=== PATIENT | male | born 1980 | race Hispanic/Latino ===

== ENCOUNTER 2019-04-16 18:55 | Emergency (ER) | payer SELFPAY ==
--- NOTE | 2019-04-16 19:16 | Event Note ---
ED Screening Note Date of service: 04/16/19 Time: 19:12 ED Screening Note: This is a 39 y.o. M. that presents to the ER with RLQ pain radiating to right groin and chest pain for 8 hours. PMH of inguinal hernia on right, HTN, tachycardia This initial assessment/diagnostic orders/clinical plan/treatment(s) is/are subject to change based on patients health status, clinical progression and re- assessment by fellow clinical providers in the ED. Further treatment and workup at subsequent clinical providers discretion. Patient/guardian urged not to elope from the ED as their condition may be serious if not clinically assessed and managed. Initial orders include: Labs, EKG, CXR, and CT of abdomen
[2019-04-16 20:28] LABS: Bilirubin,Urine NEG (Negative); Blood,Urine NEG (Negative); Color,Urine Yellow (Yellow); Mucus,Urine FEW /HPF; Urobilinogen,Urine < 2.0 mg/dL (<2.0); WBC,Urine < 1.0 /HPF (0.0-6.0)
[2019-04-16 20:36] LABS: Hematocrit 51.1 % (35.5-45.6); Hemoglobin 17.1 gm/dl (11.8-15.2); Mean Corpuscular HGB Conc 33 % (32-34); Mean Corpuscular Volume 108 fl (84-94); Platelet Count 250 K/mm3 (140-440); Red Blood Count 4.76 M/mm3 (3.65-5.03); Red Cell Distribution Width 14.9 % (13.2-15.2)
[2019-04-16 20:40] LABS: Basophils % (Auto) 0.4 % (0.0-1.8); Lymphocytes % (Auto) 14.2 % (13.4-35.0)
[2019-04-16 20:41] LABS: Lymphocytes # (Auto) 0.9 K/mm3 (1.2-5.4); Monocytes # (Auto) 0.1 K/mm3 (0.0-0.8)
[2019-04-16 21:12] LABS: Alanine Aminotransferase 21 units/L (7-56); Albumin 4.7 g/dL (3.9-5); BUN/Creatinine Ratio 14; Blood Urea Nitrogen 13 mg/dL (9-20); Calcium 8.7 mg/dL (8.4-10.2); Hemolysis Index 21
--- NOTE | 2019-04-16 21:15 | XRay Report ---
CHEST PA AND LATERAL VIEWS INDICATION: chest pain. COMPARISON: None FINDINGS: Support devices: None Heart: Normal Lungs/Pleura: No acute pulmonary or pleural findings. IMPRESSION: 1. No significant abnormality. Signer Name: John Alanis MD Signed: 04/16/2019 9:10 PM Workstation Name: [id number]
[2019-04-16] MEDS ORDERED: NACL 0.9% 1000 ML 1,000 ML IV ONE (23:49)
[2019-04-16] MEDS ORDERED: MORPHINE IV ONE (23:49)
[2019-04-16] MEDS ORDERED: ZOFRAN IV ONE (23:49)
[2019-04-16] MEDS ORDERED: PEPCID IV ONE (23:50)
--- NOTE | 2019-04-17 00:32 | Emergency Department Report ---
ED Abdominal Pain HPI - General Chief Complaint: Chest Pain Stated Complaint: ABD/CHEST PAIN Time Seen by Provider: 04/16/19 19:12 Source: patient Mode of arrival: Ambulatory Limitations: No Limitations - History of Present Illness Initial Comments: Mr. Geronimo Kimble is a 39-year-old male with history of alcohol use and "colitis" who presents with right groin pain for several months. Worse over the last day. Stabbing sharp pain in the right testicle with nausea vomiting. No constipation. Also developed indescript left-sided chest pain. Sharp. Also has mild shortness of breath. Has nonproductive cough. He drinks liquor daily. He's had 2 surgeries including hydrocelectomy and right inguinal hernia in the region. Formally followed by [facility] internal medicine practice. Currently in search for a new PCP. Has had similar pain with "colitis" years ago. MD Complaint: abdominal pain -: Gradual, days(s) (1) Location: RLQ Radiation: other (right testicle) Severity: severe Severity scale (0 -10): 9 Quality: sharp Consistency: constant Improves With: nothing Worsens With: nothing Associated Symptoms: nausea, vomiting, other (chest pain) - Related Data Previous Rx's Medication Instructions Recorded Last Taken Type Famotidine [Pepcid] 20 mg PO BID 30 Days #60 tablet 04/17/19 Unknown Rx HYDROcodone/APAP 5-325 [[place] 1 each PO Q4HR PRN #10 tablet 04/17/19 Unknown Rx 5/325] Promethazine [Phenergan] 25 mg PO Q6HR PRN #10 tab 04/17/19 Unknown Rx Allergies Allergy/AdvReac Type Severity Reaction Status Date / Time No Known Allergies Allergy Verified 04/16/19 19:05 ED Review of Systems ROS: Stated complaint: ABD/CHEST PAIN Other details as noted in HPI Comment: All other systems reviewed and negative Constitutional: malaise. denies: fever Respiratory: shortness of breath Cardiovascular: chest pain Gastrointestinal: abdominal pain, nausea, vomiting Genitourinary: denies: urgency, dysuria, frequency, discharge ED Past Medical Hx - Past Medical History Previous Medical History?: Yes Hx Hypertension: Yes - Surgical History Past Surgical History?: Yes Hx Appendectomy: Yes Additional Surgical History: RIGHT INGUINAL, HYDROCELECTOMY, RIGHT SHOULDER - Social History Smoking Status: Current Every Day Smoker Substance Use Type: Alcohol - Medications Home Medications: Home Medications Medication Instructions Recorded Confirmed Last Taken Type Famotidine [Pepcid] 20 mg PO BID 30 Days #60 tablet 04/17/19 Unknown Rx HYDROcodone/APAP 5-325 [[place] 1 each PO Q4HR PRN #10 tablet 04/17/19 Unknown Rx 5/325] Promethazine [Phenergan] 25 mg PO Q6HR PRN #10 tab 04/17/19 Unknown Rx ED Physical Exam - General Limitations: No Limitations General appearance: alert, in no apparent distress, other (appears uncomfortable) - Head Head exam: Present: atraumatic, normocephalic - Eye Eye exam: Present: normal appearance - ENT ENT exam: Present: mucous membranes moist - Neck Neck exam: Present: normal inspection - Respiratory Respiratory exam: Present: normal lung sounds bilaterally. Absent: respiratory distress - Cardiovascular Cardiovascular Exam: Present: normal rhythm, tachycardia. Absent: systolic murmur, diastolic murmur, rubs, gallop - GI/Abdominal GI/Abdominal exam: Present: soft, normal bowel sounds. Absent: distended, tenderness, guarding, rebound - Rectal Rectal exam: Present: deferred - exam: Present: other (deferred) - Extremities Exam Extremities exam: Present: normal inspection - Back Exam Back exam: Present: normal inspection - Neurological Exam Neurological exam: Present: alert, oriented X3 - Psychiatric Psychiatric exam: Present: normal affect, normal mood - Skin Skin exam: Present: warm, dry, intact, normal color. Absent: rash ED Course Vital Signs 04/16/19 04/17/19 19:12 00:30 Temperature 97.8 F Pulse Rate 117 H 104 H Respiratory 20 14 Rate Blood Pressure 129/96 Blood Pressure 134/76 [Left] O2 Sat by Pulse 100 100 Oximetry ED Medical Decision Making - Lab Data Result diagrams: 04/16/19 20:18 04/16/19 20:18 Laboratory Results - last 24 hr 04/16/19 04/16/19 04/16/19 20:18 20:18 Unknown WBC 6.0 RBC 4.76 Hgb 17.1 H Hct 51.1 H MCV 108 H MCH 36 H MCHC 33 RDW 14.9 Plt Count 250 Lymph % (Auto) 14.2 Ray % (Auto) 2.0 Eos % (Auto) 0.0 Baso % (Auto) 0.4 Lymph # 0.9 L Ray # 0.1 Eos # 0.0 Baso # 0.0 Seg Neutrophils % 83.4 H Seg Neutrophils # 5.0 Sodium 138 Potassium 5.2 H Chloride 95.8 L Carbon Dioxide 12 L Anion Gap 35 BUN 13 Creatinine 0.9 Estimated GFR > 60 BUN/Creatinine Ratio 14 Glucose 62 L Calcium 8.7 Total Bilirubin 0.20 AST 38 ALT 21 Alkaline Phosphatase 43 Total Protein 8.0 Albumin 4.7 Albumin/Globulin Ratio 1.4 Lipase Urine Color Yellow Urine Turbidity Clear Urine pH 5.0 Ur Specific [place] 1.016 Urine Protein 30 mg/dl Urine Glucose (UA) Neg Urine Ketones 80 Urine Blood Neg Urine Nitrite Neg Urine Bilirubin Neg Urine Urobilinogen < 2.0 Ur Leukocyte Esterase Neg Urine WBC (Auto) < 1.0 Urine RBC (Auto) 1.0 Urine Mucus Few 04/17/19 00:24 WBC RBC Hgb Hct MCV MCH MCHC RDW Plt Count Lymph % (Auto) Ray % (Auto) Eos % (Auto) Baso % (Auto) Lymph # Ray # Eos # Baso # Seg Neutrophils % Seg Neutrophils # Sodium Potassium Chloride Carbon Dioxide Anion Gap BUN Creatinine Estimated GFR BUN/Creatinine Ratio Glucose Calcium Total Bilirubin AST ALT Alkaline Phosphatase Total Protein Albumin Albumin/Globulin Ratio Lipase 24 Urine Color Urine Turbidity Urine pH Ur Specific [place] Urine Protein Urine Glucose (UA) Urine Ketones Urine Blood Urine Nitrite Urine Bilirubin Urine Urobilinogen Ur Leukocyte Esterase Urine WBC (Auto) Urine RBC (Auto) Urine Mucus - EKG Data 04/17/19 00:32 EKG obtained 1909 Normal EKG with the exception of sinus tachycardia rate 110 beats a minute normal axis normal intervals no ST-T signs of ischemia no signs of pericarditis - Radiology Data Radiology results: report reviewed Radiology impressions: Chest radiographs PA and lateral: No acute significant abnormality CT abdomen and pelvis: Diverticulosis without acute inflammatory process, fatty liver Scrotal ultrasound: Small left hydrocele without torsion or acute findings. - Medical Decision Making Mr. Kimble presents with chest pain right groin pain. Physical exam and labs confirm dehydration. Possible alcoholic ketoacidosis. He was treated with IV fluid and IV antiemetic and IV analgesia. Differential diagnosis include: IBS, GERD, gastritis, peptic ulcer disease, Prescribed famotidine promethazine and [place] Recommended decreased alcohol intake Critical care attestation.: If time is entered above; I have spent that time in minutes in the direct care of this critically ill patient, excluding procedure time. ED Disposition Clinical Impression: Abdominal pain, Chest pain, Groin pain, Fatty liver Disposition: TO HOME OR SELFCARE Is pt being admited?: No Does the pt Need Aspirin: No Condition: Stable Instructions: Chest Pain (ED), Acute Abdominal Pain (ED) Prescriptions: HYDROcodone/APAP 5-325 [[place] 5/325] 1 each PO Q4HR PRN #10 tablet PRN Reason: Pain Famotidine [Pepcid] 20 mg PO BID 30 Days #60 tablet Promethazine [Phenergan] 25 mg PO Q6HR PRN #10 tab PRN Reason: Nausea Referrals: DONNA SOL MD [Staff Physician] - 3-5 Days Forms: Work/School Release Form(ED)
[2019-04-17] MEDS ORDERED: NACL 0.9% 1000 ML 1,000 ML IV ONE (00:33)
--- NOTE | 2019-04-17 01:34 | Ultrasound Report ---
US testicular doppler comp INDICATION / CLINICAL INFORMATION: right testicle pain. COMPARISON: None available. FINDINGS: Testicular and epididymal appearance is normal bilaterally. Doppler imaging shows normal testicular blood flow. There is a small left hydrocele. IMPRESSION: 1. No evidence of testicular torsion or acute finding 2. Small left hydrocele.. Signer Name: Peter Feldman MD Signed: 04/17/2019 1:30 AM Workstation Name: [id number]
[2019-04-17] MEDS ORDERED: ZOFRAN IV ONE (01:36)
[2019-04-17] MEDS ORDERED: MORPHINE IV ONE ×2 (01:36→02:20)
--- NOTE | 2019-04-17 01:42 | Cat Scan Report ---
CT abdomen pelvis w con INDICATION / CLINICAL INFORMATION: RLQ pain. TECHNIQUE: All CT scans at this location are performed using CT dose reduction for ALARA by means of automated e xposure control. COMPARISON: None available. FINDINGS: Limited lower thoracic images are negative. ABDOMEN: Gallbladder is normal. Hepatic parenchymal hypoattenuation is due to fatty infiltration. There are tiny benign low-density areas in the liver, too small to characterize but are not considere d significant. The spleen, pancreas and kidneys are normal. No hydronephrosis or urinary calculi. No small bowel distention. Adrenal glands are normal. No retroperitoneal or mesenteric adenopathy. Pelvis: Postsurgical changes consistent with right inguinal herniorrhaphy and appendectomy. No abnormal pelvi c fluid collections or inflammatory changes. The colon is nondistended, several diverticula are demonstrated in the right colon and distal descend ing colon. There are no acute bony abnormalities. IMPRESSION: 1. No acute findings in the abdomen or pelvis. 2. Colonic diverticulosis involving the cecum and distal descending colon. 3. Fatty liver. Signer Name: Peter Feldman MD Signed: 04/17/2019 1:38 AM Workstation Name: [id number]
[2019-04-17] MEDS ORDERED: PHENERGAN PO ONE (02:20)
[2019-04-17 03:22] VITALS: BP 136/81
== END 2019-04-17 03:00 | disposition home or self-care (01) ==
LOC: ED 18:55
DX: R10.31 Right lower quadrant pain (principal); R11.2 Nausea with vomiting, unspecified; R07.89 Other chest pain; K76.0 Fatty (change of) liver, not elsewhere classified; I10 Essential (primary) hypertension; F17.200 Nicotine dependence, unspecified, uncomplicated; Z90.49 Acquired absence of other specified parts of digestive tract; Z79.899 Other long term (current) drug therapy
CPT/HCPCS: 36415; 71046; 74177; 80053; 81001; 83690; 85025; 93005; 93010; 93975; 96361; 96374; 96375; 96376; 99284; J2270; J2405; J7030; Q0169; Q9967